=== PATIENT | female | born 1945 | race Hispanic/Latino ===

== ENCOUNTER → 2017-08-29 | Outpatient (CLI) | payer MEDICARE ==
[~2017-08-29] MED LIST: ACET-2247 PO; CYAN100010 PO; GLIM2TAB3 PO; LACT10SO8 PO; LEVO50TA4 PO; LISI40TA4 PO; LORA10TA7 PO; NADO20TA12 PO; OLME40TA18 PO; PANT40TA25 PO; [UNRECOGNIZED DRUG - OTHER] PO
== END | disposition home or self-care (01) ==
LOC: OIH 13:39
PROVIDERS: ATTEND Internal Medicine
DX: M54.16 Radiculopathy, lumbar region (principal); M54.12 Radiculopathy, cervical region; M25.552 Pain in left hip
CPT/HCPCS: 72040; 72100; 73502

== ENCOUNTER 2017-09-28 22:12 | Emergency (ER) | payer MEDICARE ==
[~2017-09-28 22:12] MED LIST changes: -ACET-2247 PO; -CYAN100010 PO; -LACT10SO8 PO; -LEVO50TA4 PO; -OLME40TA18 PO
[2017-09-29 00:03] LABS: APPEARANCE,URINE Clear (CLEAR); BILIRUBIN,URINE Negative (NEGATIVE); COLOR,URINE Yellow (YELLOW); GLUCOSE, URINE (UA) Negative (NEGATIVE); KETONES,URINE Negative (NEGATIVE); LEUKOCYTE ESTERASE ,URINE Moderate (NEGATIVE); NITRATE,URINE Negative (NEGATIVE); OCCULT BLOOD,URINE Negative (NEGATIVE); PH,URINE >=9.0 (5.0-8.0); PROTEIN,URINE Negative (NEGATIVE); UROBILINOGEN,URINE 0.2 mg/dL (0.2-1.0)
[2017-09-29 00:06] LABS: MEAN CORPUSCULAR HEMOGLOBIN 25.5 pg (27.0-33.0); MEAN CORPUSCULAR HGB CONC 33.7 g/dL (32.0-36.0); MEAN CORPUSCULAR VOLUME 75.6 fL (79-99); NUCLEATED RED BLOOD CELLS 0.2 % (0.0-0.19); PLATELET COUNT (AUTO) 99 K/uL (130-400); RED BLOOD CELL COUNT(AUTO) 3.96 MIL/uL (4.00-5.50); RED CELL DISTRIBUTION WIDTH 17.1 % (11.0-15.5); WHITE BLOOD COUNT (AUTO) 2.5 K/uL (4.8-10.8)
[2017-09-29 00:18] LABS: CREATININE 0.7 mg/dL (0.5-1.5); POTASSIUM 3.5 mmol/L (3.5-5.1)
[2017-09-29 00:22] LABS: BILIRUBIN,TOTAL 0.8 mg/dL (0.2-1.0); TOTAL PROTEIN, SERUM 6.7 g/dL (6.0-8.3)
[2017-09-29 00:26] LABS: BACTERIA,URINE Many /HPF (None Seen); RBC,URINE 0-1 /HPF (0-1); SQUAMOUS EPITHELIAL CELL,UR None Seen /LPF (0-2)
[2017-09-29 00:35] LABS: BAND NEUTROPHILS % (MANUAL) 1 % (0-2); EOSINOPHILS % (MANUAL) 3 % (1-6); LYMPHOCYTES % (MANUAL) 22 % (22-44); MAN.DIFF COMMENT-IMPRESSION MANUAL DIFFERENTIAL; MONOCYTES % (MANUAL) 3 % (2-9); PLATELET MORPHOLOGY COMMENT DECREASED; SEGMENTED NEUTROPHILS % 71 % (40-70)
[2017-09-29] MEDS ORDERED: MAG HYDROX/AL HYDROX/SIMETH ES 30 ML SUSP UDCUP ONE (04:15)
[2017-09-29] MEDS ORDERED: LIDOCAINE HCL 2% VISCOUS 15 ML UDCUP ONE (04:15)
[2017-10-16] MEDS ORDERED: LEVO50TA4 PO (11:37)
[2017-10-16] MEDS ORDERED: LACT10SO8 PO (11:37)
[2017-10-16] MEDS ORDERED: CYAN100010 PO (11:37)
[2017-10-16] MEDS ORDERED: OLME40TA18 PO (11:37)
[2017-10-16] MEDS ORDERED: ACET-2247 PO (11:37)
== END 2017-09-29 04:49 | disposition home or self-care (01) ==
LOC: EDH 22:12
DX: K29.00 Acute gastritis without bleeding (principal); E11.9 Type 2 diabetes mellitus without complications; I10 Essential (primary) hypertension; K74.60 Unspecified cirrhosis of liver; E78.5 Hyperlipidemia, unspecified; Z88.0 Allergy status to penicillin; Z88.6 Allergy status to analgesic agent; Z87.442 Personal history of urinary calculi
CPT/HCPCS: 36415; 71045; 80053; 81001; 82150; 82270; 83690; 84484; 85025; 93005

== ENCOUNTER 2017-10-17 07:36 | Day surgery (SDC) | payer MEDICARE ==
[~2017-10-17] VITALS: Ht 154.9 cm; Wt 71.4 kg
[~2017-10-17 07:36] MED LIST changes: +ACET-2247 PO; +CYAN100010 PO; +LACT10SO8 PO; +LEVO50TA4 PO; -LISI40TA4 PO; -LORA10TA7 PO; +OLME40TA18 PO; +SODIUM CHLORIDE 0.9% 1000ML 1,000 ML IV ONE; -[UNRECOGNIZED DRUG - OTHER] PO
[2017-10-17 08:54] VITALS: BP 117/53
[2017-10-17] MEDS ORDERED: PROPOFOL 1000 MG/100 ML 100 ML IV ONE (09:45)
[2017-10-17 10:10] VITALS: BP 90/45
== END 2017-10-17 10:52 | disposition home or self-care (01) ==
LOC: DAH 07:36
PROVIDERS: ATTEND Internal Medicine Gastroenterology
DX: D12.3 Benign neoplasm of transverse colon (principal); D12.4 Benign neoplasm of descending colon; Z86.010 Personal history of colon polyps; K55.20 Angiodysplasia of colon without hemorrhage; I85.00 Esophageal varices without bleeding; K76.6 Portal hypertension; K31.89 Other diseases of stomach and duodenum; K21.9 Gastro-esophageal reflux disease without esophagitis; I10 Essential (primary) hypertension; D61.818 Other pancytopenia; E11.9 Type 2 diabetes mellitus without complications; E03.9 Hypothyroidism, unspecified; G35 Multiple sclerosis; Z68.30 Body mass index [BMI] 30.0-30.9, adult; Z79.899 Other long term (current) drug therapy; K74.69 Other cirrhosis of liver
CPT/HCPCS: 36415; 43235; 45380; 82105; 82948 ×2; 88305; 93005; A4606; J2704; J7030

== ENCOUNTER 2017-11-25 10:16 | Day surgery (SDC) | payer MEDICARE ==
[2017-11-25] VITALS (7 sets, daily range): BP systolic 100–131; BP diastolic 61–74
[~2017-11-25] VITALS: Ht 154.9 cm; Wt 73.1 kg
[~2017-11-25 10:16] MED LIST changes: -SODIUM CHLORIDE 0.9% 1000ML 1,000 ML IV ONE
[2017-11-25 11:10] LABS: BASOPHILS % (AUTO) 1.4 % (0.0-5.0); HEMATOCRIT 31.9 % (36-48); LYMPHOCYTES % (AUTO) 22.5 % (21.0-51.0); MEAN CORPUSCULAR HEMOGLOBIN 26.3 pg (27.0-33.0); MEAN CORPUSCULAR HGB CONC 33.8 g/dL (32.0-36.0); MEAN CORPUSCULAR VOLUME 77.6 fL (79-99); MONOCYTES % (AUTO) 9.4 % (3.0-13.0); NEUTROPHILS % (AUTO) 60.7 % (40.0-77.0); NUCLEATED RED BLOOD CELLS 0.1 % (0.0-0.19); PLATELET COUNT (AUTO) 117 K/uL (130-400); RED BLOOD CELL COUNT(AUTO) 4.11 MIL/uL (4.00-5.50); RED CELL DISTRIBUTION WIDTH 16.6 % (11.0-15.5); WHITE BLOOD COUNT (AUTO) 3.5 K/uL (4.8-10.8)
[2017-11-25 11:21] LABS: ALBUMIN 3.2 g/dL (3.5-5.0); BILIRUBIN,TOTAL 1.2 mg/dL (0.2-1.0); CREATININE 0.6 mg/dL (0.5-1.5); POTASSIUM 4.2 mmol/L (3.5-5.1); TOTAL PROTEIN, SERUM 7.1 g/dL (6.0-8.3)
[2017-11-25 11:30] LABS: INR 1.18 (0.85-1.15); PARTIAL THROMBOPLASTIN TIME 29.4 SEC (26.3-35.5); PROTHROMBIN TIME 12.4 SEC (9.6-11.6)
[2017-11-25] MEDS ORDERED: FENTANYL CITRATE PF 50 MCG/1 ML 2ML VIAL ONE (11:47)
[2017-11-25] MEDS ORDERED: SODIUM CHLORIDE 0.9% 1000ML 1,000 ML IV ONE (12:12)
== END 2017-11-25 14:00 | disposition home or self-care (01) ==
LOC: DAH 10:16
PROVIDERS: ATTEND Internal Medicine Gastroenterology
DX: K74.69 Other cirrhosis of liver (principal); K75.81 Nonalcoholic steatohepatitis (NASH); K21.9 Gastro-esophageal reflux disease without esophagitis; I10 Essential (primary) hypertension; E11.9 Type 2 diabetes mellitus without complications; E03.9 Hypothyroidism, unspecified; G35 Multiple sclerosis; Z68.31 Body mass index [BMI] 31.0-31.9, adult; I85.10 Secondary esophageal varices without bleeding; Z86.010 Personal history of colon polyps
CPT/HCPCS: 36415; 47000; 76942; 80053; 82948; 85025; 85610; 85730; 88307; C2615; J3010; J7030

== ENCOUNTER 2017-12-13 06:33 | Emergency (ER) | payer MEDICARE ==
[2017-12-13] MEDS ORDERED: CYCLOBENZAPRINE HCL 10 MG TABLET ONE (07:47)
[2017-12-13] MEDS ORDERED: TRAMADOL HCL 50 MG TABLET ONE (07:47)
== END 2017-12-13 09:09 | disposition home or self-care (01) ==
LOC: EDH 06:33
DX: M54.12 Radiculopathy, cervical region (principal); E11.9 Type 2 diabetes mellitus without complications; E78.5 Hyperlipidemia, unspecified; I10 Essential (primary) hypertension; K74.69 Other cirrhosis of liver; Z87.442 Personal history of urinary calculi; Z88.6 Allergy status to analgesic agent; Z88.0 Allergy status to penicillin
CPT/HCPCS: 72125

== ENCOUNTER 2018-01-09 09:14 | Emergency (ER) | payer MEDICARE ==
[2018-01-09] MEDS ORDERED: ACETAMINOPHEN EXTRA STRENGTH 500 MG TABLET ONE (09:33)
[2018-01-09] MEDS ORDERED: DIAZEPAM 2 MG TAB ONE (09:34)
== END 2018-01-09 11:33 | disposition home or self-care (01) ==
LOC: EDH 09:14
DX: S39.012A Strain of muscle, fascia and tendon of lower back, initial encounter (principal); K74.60 Unspecified cirrhosis of liver; E11.9 Type 2 diabetes mellitus without complications; E78.5 Hyperlipidemia, unspecified; I10 Essential (primary) hypertension; Z87.442 Personal history of urinary calculi; Z88.0 Allergy status to penicillin; Z88.6 Allergy status to analgesic agent; W01.0XXA Fall on same level from slipping, tripping and stumbling without subsequent striking against object, initial encounter; Y93.89 Activity, other specified; Y92.090 Kitchen in other non-institutional residence as the place of occurrence of the external cause; Y99.8 Other external cause status
CPT/HCPCS: 71045; 72100

== ENCOUNTER → 2018-01-12 | Outpatient (CLI) | payer MEDICARE | END | disposition home or self-care (01) | LOC: OIH 16:13 | PROVIDERS: ATTEND Internal Medicine | DX: M85.89 Other specified disorders of bone density and structure, multiple sites (principal); M54.14 Radiculopathy, thoracic region; R07.81 Pleurodynia | CPT/HCPCS: 71100; 72070 ==

== ENCOUNTER 2018-09-18 08:13 | Day surgery (SDC) | payer MEDICARE ==
[2018-09-18] VITALS (8 sets, daily range): BP systolic 97–137; BP diastolic 52–66
[~2018-09-18] VITALS: Ht 152.4 cm; Wt 70.8 kg
[~2018-09-18 08:13] MED LIST changes: -ACET-2247 PO; -CYAN100010 PO; +DEXL60CA3 PO; -GLIM2TAB3 PO; +GLIM4TAB3 PO; -PANT40TA25 PO; +SODIUM CHLORIDE 0.9% 1000ML 1,000 ML IV ONE
[2018-09-18] MEDS ORDERED: PROPOFOL 1000 MG/100 ML 100 ML IV ONE (11:25)
[2018-09-18] MEDS ORDERED: EPHEDRINE SULFATE 50 MG/ML AMPULE ONE (11:29)
== END 2018-09-18 12:59 | disposition home or self-care (01) ==
LOC: DAH 08:13
PROVIDERS: ATTEND Internal Medicine
DX: D12.0 Benign neoplasm of cecum (principal); D12.4 Benign neoplasm of descending colon; K62.1 Rectal polyp; K57.30 Diverticulosis of large intestine without perforation or abscess without bleeding; Z86.010 Personal history of colon polyps; K64.8 Other hemorrhoids; I10 Essential (primary) hypertension; K21.9 Gastro-esophageal reflux disease without esophagitis; Z80.0 Family history of malignant neoplasm of digestive organs; Z90.710 Acquired absence of both cervix and uterus; Z79.899 Other long term (current) drug therapy; Z79.01 Long term (current) use of anticoagulants; Z98.890 Other specified postprocedural states; Z83.3 Family history of diabetes mellitus; Z82.49 Family history of ischemic heart disease and other diseases of the circulatory system; Z88.0 Allergy status to penicillin; Z88.8 Allergy status to other drugs, medicaments and biological substances; K31.7 Polyp of stomach and duodenum
CPT/HCPCS: 43239; 45380; 45385; 76700; 88305; 88312; 93005; A4606; J2704; J3490; J7030; 43237; 45384

== ENCOUNTER 2018-11-23 12:14 | Observation (INO) | payer MEDICARE ==
[~2018-11-23] VITALS: Ht 152.4 cm; Wt 71.0 kg
[~2018-11-23 12:14] MED LIST changes: -SODIUM CHLORIDE 0.9% 1000ML 1,000 ML IV ONE
[2018-11-23 12:51] LABS: EOSINOPHILS % (AUTO) 3.3 % (0.0-8.0); LYMPHOCYTES % (AUTO) 24.4 % (21.0-51.0); MEAN CORPUSCULAR HGB CONC 32.9 g/dL (32.0-36.0); MONOCYTES % (AUTO) 7.7 % (3.0-13.0); NEUTROPHILS % (AUTO) 63.6 % (40.0-77.0); NUCLEATED RED BLOOD CELLS 0.1 % (0.0-0.19); PLATELET COUNT (AUTO) 95 K/uL (130-400); RED CELL DISTRIBUTION WIDTH 16.9 % (11.0-15.5); WHITE BLOOD COUNT (AUTO) 2.7 K/uL (4.8-10.8)
[2018-11-23 13:03] LABS: CREATININE 0.7 mg/dL (0.5-1.5); POTASSIUM 4.2 mmol/L (3.5-5.1)
[2018-11-23 13:08] LABS: ALBUMIN 3.1 g/dL (3.5-5.0); BILIRUBIN,TOTAL 1.1 mg/dL (0.2-1.0); TOTAL PROTEIN, SERUM 6.3 g/dL (6.0-8.3)
[2018-11-23 13:23] LABS: BASOPHILS % (MANUAL) 1 % (0-2); EOSINOPHILS % (MANUAL) 2 % (1-6); LYMPHOCYTES % (MANUAL) 21 % (22-44); MAN.DIFF COMMENT-IMPRESSION MANUAL DIFFERENTIAL; MONOCYTES % (MANUAL) 9 % (2-9); PLATELET MORPHOLOGY COMMENT DECREASED; SEGMENTED NEUTROPHILS % 67 % (40-70)
[2018-11-23] MEDS ORDERED: LACTULOSE 20 GM/30 ML UDCUP ONE (14:12)
[2018-11-23 14:15] LABS: APPEARANCE,URINE Clear (CLEAR); BILIRUBIN,URINE Negative (NEGATIVE); COLOR,URINE Yellow (YELLOW); GLUCOSE, URINE (UA) Negative (NEGATIVE); KETONES,URINE Negative (NEGATIVE); LEUKOCYTE ESTERASE ,URINE Trace (NEGATIVE); NITRATE,URINE Negative (NEGATIVE); OCCULT BLOOD,URINE Negative (NEGATIVE); PH,URINE 7.5 (5.0-8.0); PROTEIN,URINE Negative (NEGATIVE); UROBILINOGEN,URINE 0.2 mg/dL (0.2-1.0)
[2018-11-23 14:36] LABS: BACTERIA,URINE Moderate /HPF (None Seen); RBC,URINE None Seen /HPF (0-1); WBC,URINE 0-1 /HPF (0-1)
[2018-11-23] MEDS ORDERED: SODIUM CHLORIDE 0.9% 10 ML VIAL IVP PRN (17:00)
[2018-11-23] MEDS ORDERED: LACTULOSE 20 GM/30 ML UDCUP PO SCH (21:00)
[2018-11-24] MEDS ORDERED: LACTULOSE 20 GM/30 ML UDCUP ONE (02:36)
[2018-11-24 05:17] LABS: BASOPHILS % (AUTO) 0.7 % (0.0-5.0); EOSINOPHILS % (AUTO) 6.2 % (0.0-8.0); HEMATOCRIT 27.4 % (36-48); LYMPHOCYTES % (AUTO) 30.9 % (21.0-51.0); MEAN CORPUSCULAR HEMOGLOBIN 23.8 pg (27.0-33.0); MEAN CORPUSCULAR HGB CONC 32.2 g/dL (32.0-36.0); MONOCYTES % (AUTO) 10.2 % (3.0-13.0); NUCLEATED RED BLOOD CELLS 0.2 % (0.0-0.19); PLATELET COUNT (AUTO) 106 K/uL (130-400); RED CELL DISTRIBUTION WIDTH 16.8 % (11.0-15.5); WHITE BLOOD COUNT (AUTO) 2.8 K/uL (4.8-10.8)
[2018-11-24 05:26] LABS: CREATININE 0.7 mg/dL (0.5-1.5); POTASSIUM 3.4 mmol/L (3.5-5.1)
[2018-11-24] MEDS ORDERED: OLME1TAB44 PO (10:16)
[2018-11-24] MEDS ORDERED: CYAN-35 PO (10:16)
[2018-11-24] MEDS ORDERED: PANT40TA25 PO (10:16)
[2018-11-24] MEDS ORDERED: ATOR20TA65 PO (10:16)
--- NOTE | 2018-11-24 10:39 | NUR ---
DC DC INSTRUCTIONS GIVEN TO PT / PTS FRIEND RONNIE, INSTRUCTED TO F/U WITH DR. ALARCON, NO NEW RX GIVEN. PT AWAKE AND ALERT, DENIES ANY PAIN OR DISCOMFORTS. PIV REMOVED TO LEFT HAND SITE ASYMTOMATIC, CATHETER INTACT, PT BEING SEND HOME WITH FAMILY FRIEND RONNIE. HE HELPS TAKE CARE OF HER AT HOME
== END 2018-11-24 11:06 | disposition home or self-care (01) ==
LOC: EDH 12:14 → EDHIP 16:16
PROVIDERS: ADMIT Internal Medicine; ATTEND Internal Medicine
DX: K72.90 Hepatic failure, unspecified without coma (principal); E78.5 Hyperlipidemia, unspecified; I10 Essential (primary) hypertension; K74.60 Unspecified cirrhosis of liver; Z86.010 Personal history of colon polyps
CPT/HCPCS: 36415 ×2; 80048; 80053; 81001; 82140 ×2; 85025 ×2; 86850; 86900; 86901; 99284; G0378 ×19

== ENCOUNTER 2019-01-25 10:35 | Emergency (ER) | payer MEDICARE ==
[~2019-01-25 10:35] MED LIST changes: +ATOR20TA65 PO; +CYAN-35 PO; -DEXL60CA3 PO; +OLME1TAB44 PO; -OLME40TA18 PO; +PANT40TA25 PO
[2019-01-25] MEDS ORDERED: NA BORATE/BORIC AC/H2O/NACL 120 ML OPHTH IRRIG SOLN ONE (10:55)
[2019-01-25] MEDS ORDERED: TETRACAINE HCL 0.5% 4 ML OPHTH SOLN ONE (10:55)
[2019-01-25] MEDS ORDERED: FLUORESCEIN SODIUM 1 STRIP STRIP ONE (10:55)
[2019-01-25 11:15] LABS: BASOPHILS % (AUTO) 0.9 % (0.0-5.0); EOSINOPHILS % (AUTO) 4.3 % (0.0-8.0); HEMATOCRIT 28.6 % (36-48); LYMPHOCYTES % (AUTO) 20.3 % (21.0-51.0); MEAN CORPUSCULAR HEMOGLOBIN 24.7 pg (27.0-33.0); MEAN CORPUSCULAR HGB CONC 33.5 g/dL (32.0-36.0); MEAN CORPUSCULAR VOLUME 73.7 fL (79-99); MONOCYTES % (AUTO) 7.2 % (3.0-13.0); NEUTROPHILS % (AUTO) 67.3 % (40.0-77.0); NUCLEATED RED BLOOD CELLS 0.1 % (0.0-0.19); PLATELET COUNT (AUTO) 62 K/uL (130-400); RED BLOOD CELL COUNT(AUTO) 3.88 MIL/uL (4.00-5.50); WHITE BLOOD COUNT (AUTO) 2.4 K/uL (4.8-10.8)
[2019-01-25 11:28] LABS: ALBUMIN 2.6 g/dL (3.5-5.0); BILIRUBIN,TOTAL 1.9 mg/dL (0.2-1.0); CREATININE 0.6 mg/dL (0.5-1.5); TOTAL PROTEIN, SERUM 4.9 g/dL (6.0-8.3)
[2019-01-25 11:29] LABS: APPEARANCE,URINE SL CLOUDY (CLEAR); BILIRUBIN,URINE SMALL (NEGATIVE); COLOR,URINE YELLOW (YELLOW); GLUCOSE, URINE (UA) NEGATIVE (NEGATIVE); KETONES,URINE NEGATIVE (NEGATIVE); LEUKOCYTE ESTERASE ,URINE MODERATE (NEGATIVE); NITRATE,URINE NEGATIVE (NEGATIVE); OCCULT BLOOD,URINE NEGATIVE (NEGATIVE); PROTEIN,URINE TRACE mg/dL (NEGATIVE)
[2019-01-25 11:42] LABS: INR 1.22 (0.85-1.15); PARTIAL THROMBOPLASTIN TIME 27.3 SEC (26.3-35.5); PROTHROMBIN TIME 12.8 SEC (9.6-11.6)
[2019-01-25 11:46] LABS: BACTERIA,URINE Moderate /HPF (None Seen); RBC,URINE None Seen /HPF (0-1); WBC,URINE 51-100 /HPF (0-1)
[2019-01-25 12:03] LABS: BAND NEUTROPHILS % (MANUAL) 1 % (0-2); BASOPHILS % (MANUAL) 1 % (0-2); EOSINOPHILS % (MANUAL) 2 % (1-6); LYMPHOCYTES % (MANUAL) 15 % (22-44); MAN.DIFF COMMENT-IMPRESSION MANUAL DIFFERENTIAL; MONOCYTES % (MANUAL) 6 % (2-9); SEGMENTED NEUTROPHILS % 75 % (40-70)
[2019-01-25 12:06] LABS: PLATELET MORPHOLOGY COMMENT DECREASED
[2019-01-25] MEDS ORDERED: ERYTHROMYCIN BASE 0.5% OPHTH OINT 1 GM TUBE ONE (14:55)
[2019-01-25] MEDS ORDERED: CEFTRIAXONE SODIUM 1 GM ONE (15:09)
[2019-01-25] MEDS ORDERED: SODIUM CHLORIDE 0.9% 50 ML IV ONE (15:09)
== END 2019-01-25 15:46 | disposition home or self-care (01) ==
LOC: EDH 10:35
DX: H10.32 Unspecified acute conjunctivitis, left eye (principal); N39.0 Urinary tract infection, site not specified; K74.69 Other cirrhosis of liver; R13.10 Dysphagia, unspecified; I10 Essential (primary) hypertension; E78.5 Hyperlipidemia, unspecified; E11.9 Type 2 diabetes mellitus without complications; Z88.0 Allergy status to penicillin; Z88.6 Allergy status to analgesic agent; Z87.442 Personal history of urinary calculi
CPT/HCPCS: 36415; 70360; 71045; 80053; 81001; 82150; 82550; 83690; 84484; 85025; 85610; 85730; 87077; 87088; 87186; 93005; 96374; 99285; J0696

== ENCOUNTER 2019-02-12 00:14 | Emergency (ER) | payer MEDICARE ==
[2019-02-12 00:35] LABS: BASOPHILS % (AUTO) 0.1 % (0.0-5.0); HEMATOCRIT 33.9 % (36-48); LYMPHOCYTES % (AUTO) 11.7 % (21.0-51.0); MEAN CORPUSCULAR HEMOGLOBIN 23.9 pg (27.0-33.0); MEAN CORPUSCULAR VOLUME 74.7 fL (79-99); MONOCYTES % (AUTO) 6.6 % (3.0-13.0); NEUTROPHILS % (AUTO) 81.6 % (40.0-77.0); PLATELET COUNT (AUTO) 103 K/uL (130-400); RED BLOOD CELL COUNT(AUTO) 4.53 MIL/uL (4.00-5.50); RED CELL DISTRIBUTION WIDTH 24.3 % (11.0-15.5); WHITE BLOOD COUNT (AUTO) 4.8 K/uL (4.8-10.8)
[2019-02-12 00:48] LABS: CREATININE 0.7 mg/dL (0.5-1.5); POTASSIUM 4.3 mmol/L (3.5-5.1)
[2019-02-12 00:58] LABS: INR 1.3 (0.85-1.15); PARTIAL THROMBOPLASTIN TIME 26.1 SEC (26.3-35.5); PROTHROMBIN TIME 13.6 SEC (9.6-11.6)
[2019-02-12 01:05] LABS: B-TYPE NATRIURETIC PEPTIDE 203 pg/mL (0-100)
[2019-02-12 01:10] LABS: ALBUMIN 3.1 g/dL (3.5-5.0); BILIRUBIN,TOTAL 1.9 mg/dL (0.2-1.0); TOTAL PROTEIN, SERUM 5.9 g/dL (6.0-8.3)
[2019-02-12] MEDS ORDERED: FUROSEMIDE 10 MG/ML 4ML VIAL ONE (01:57)
[2019-02-12] MEDS ORDERED: INSULIN HUMULIN R 100 UNIT/ML 3ML ONE (01:58)
== END 2019-02-12 03:21 | disposition home or self-care (01) ==
LOC: EDH 00:14
DX: R06.00 Dyspnea, unspecified (principal); R60.0 Localized edema; E11.9 Type 2 diabetes mellitus without complications; R79.89 Other specified abnormal findings of blood chemistry; I10 Essential (primary) hypertension; E78.5 Hyperlipidemia, unspecified; Z88.0 Allergy status to penicillin; Z88.6 Allergy status to analgesic agent; Z88.2 Allergy status to sulfonamides; Z87.442 Personal history of urinary calculi
CPT/HCPCS: 36415; 71045; 80053; 82550; 83874; 83880; 84484; 85025; 85610; 85730; 93005; 96374; 96375; 99285; J1815; J1940

== ENCOUNTER 2019-02-19 23:46 | Emergency (ER) | payer MEDICARE ==
[2019-02-20 00:21] LABS: BASOPHILS % (AUTO) 0.9 % (0.0-5.0); EOSINOPHILS % (AUTO) 2.6 % (0.0-8.0); HEMATOCRIT 34.8 % (36-48); LYMPHOCYTES % (AUTO) 24.3 % (21.0-51.0); MEAN CORPUSCULAR HEMOGLOBIN 23.9 pg (27.0-33.0); MEAN CORPUSCULAR HGB CONC 32.1 g/dL (32.0-36.0); MEAN CORPUSCULAR VOLUME 74.5 fL (79-99); MONOCYTES % (AUTO) 13.4 % (3.0-13.0); NEUTROPHILS % (AUTO) 58.8 % (40.0-77.0); PLATELET COUNT (AUTO) 79 K/uL (130-400); RED BLOOD CELL COUNT(AUTO) 4.67 MIL/uL (4.00-5.50); RED CELL DISTRIBUTION WIDTH 23.3 % (11.0-15.5); WHITE BLOOD COUNT (AUTO) 5.4 K/uL (4.8-10.8)
[2019-02-20 00:46] LABS: CREATININE 0.8 mg/dL (0.5-1.5); POTASSIUM 3.3 mmol/L (3.5-5.1)
[2019-02-20 00:48] LABS: INR 1.19 (0.85-1.15); PARTIAL THROMBOPLASTIN TIME 29.4 SEC (26.3-35.5); PROTHROMBIN TIME 12.5 SEC (9.6-11.6)
[2019-02-20 00:50] LABS: ALBUMIN 3.1 g/dL (3.5-5.0); BILIRUBIN,TOTAL 1.6 mg/dL (0.2-1.0); TOTAL PROTEIN, SERUM 5.8 g/dL (6.0-8.3)
[2019-02-20] MEDS ORDERED: ALBUTEROL SULFATE 0.083% 2.5 MG/3 ML INH IH ONE (00:53)
[2019-02-20 00:59] LABS: B-TYPE NATRIURETIC PEPTIDE 102 pg/mL (0-100)
[2019-02-20] MEDS ORDERED: LACTULOSE 20 GM/30 ML UDCUP ONE (01:28)
== END 2019-02-20 02:01 | disposition home or self-care (01) ==
LOC: EDH 23:46
DX: R06.00 Dyspnea, unspecified (principal); K59.00 Constipation, unspecified; E11.9 Type 2 diabetes mellitus without complications; E78.5 Hyperlipidemia, unspecified; I10 Essential (primary) hypertension; Z88.6 Allergy status to analgesic agent; Z88.0 Allergy status to penicillin; Z87.442 Personal history of urinary calculi
CPT/HCPCS: 36415; 71045; 80053; 82550; 83880; 84484; 85025; 85610; 85730; 93005; 94640

== ENCOUNTER 2019-02-21 05:07 | Emergency (ER) | payer MEDICARE ==
[2019-02-21] MEDS ORDERED: IPRATROPIUM/ALBUTEROL SULFATE 3 ML SOLUTION IH ONE (05:25)
[2019-02-21 05:36] LABS: BASOPHILS % (AUTO) 1.1 % (0.0-5.0); EOSINOPHILS % (AUTO) 3.5 % (0.0-8.0); HEMATOCRIT 31.8 % (36-48); LYMPHOCYTES % (AUTO) 21.8 % (21.0-51.0); MEAN CORPUSCULAR HEMOGLOBIN 24.2 pg (27.0-33.0); MEAN CORPUSCULAR HGB CONC 32.8 g/dL (32.0-36.0); MEAN CORPUSCULAR VOLUME 73.6 fL (79-99); MONOCYTES % (AUTO) 12.7 % (3.0-13.0); NEUTROPHILS % (AUTO) 60.9 % (40.0-77.0); NUCLEATED RED BLOOD CELLS 0.1 % (0.0-0.19); PLATELET COUNT (AUTO) 78 K/uL (130-400); RED BLOOD CELL COUNT(AUTO) 4.33 MIL/uL (4.00-5.50); RED CELL DISTRIBUTION WIDTH 23.5 % (11.0-15.5); WHITE BLOOD COUNT (AUTO) 4.4 K/uL (4.8-10.8)
[2019-02-21 05:48] LABS: ALBUMIN 2.9 g/dL (3.5-5.0); BILIRUBIN,TOTAL 1.5 mg/dL (0.2-1.0); CREATININE 0.7 mg/dL (0.5-1.5); TOTAL PROTEIN, SERUM 5.6 g/dL (6.0-8.3)
[2019-02-21 05:50] LABS: B-TYPE NATRIURETIC PEPTIDE 71 pg/mL (0-100)
[2019-02-21] MEDS ORDERED: POTASSIUM BICARB/CIT AC 25 MEQ TABLET.EFF ONE (06:20)
[2019-02-21] MEDS ORDERED: IOHEXOL 350 MG/ML 100ML INFUS..BTL IV ONE (08:12)
== END 2019-02-21 09:55 | disposition home or self-care (01) ==
LOC: EDH 05:07
DX: K74.60 Unspecified cirrhosis of liver (principal); R06.00 Dyspnea, unspecified; I10 Essential (primary) hypertension; E11.9 Type 2 diabetes mellitus without complications; E78.5 Hyperlipidemia, unspecified; Z87.442 Personal history of urinary calculi; Z88.0 Allergy status to penicillin; Z88.6 Allergy status to analgesic agent
CPT/HCPCS: 36415; 71045; 71275; 80053; 82550; 83735; 83880; 84484; 85025; 85378; 93005; 93970; 94640; 99285; Q9967

== ENCOUNTER 2020-03-27 10:17 | Emergency (ER) | payer MEDICARE ==
[~2020-03-27 10:17] MED LIST changes: -CYAN-35 PO; +FURO40TA7 PO; -GLIM4TAB3 PO; +GLIM4TAB36 PO; +LACT10SO62 PO; -LACT10SO8 PO; +LEVO500T2 PO; -NADO20TA12 PO; -OLME1TAB44 PO; +OLME1TAB86 PO
[2020-03-27 11:01] LABS: BASOPHILS % (AUTO) 0.6 % (0.0-5.0); EOSINOPHILS % (AUTO) 3.7 % (0.0-8.0); HEMATOCRIT 27.2 % (36-48); LYMPHOCYTES % (AUTO) 20.8 % (21.0-51.0); MEAN CORPUSCULAR VOLUME 78.2 fL (79-99); MONOCYTES % (AUTO) 11.5 % (3.0-13.0); NEUTROPHILS % (AUTO) 63.1 % (40.0-77.0); PLATELET COUNT (AUTO) 65 K/uL (130-400); RED BLOOD CELL COUNT(AUTO) 3.48 MIL/uL (4.00-5.50); RED CELL DISTRIBUTION WIDTH 18.2 % (11.0-15.5); WHITE BLOOD COUNT (AUTO) 3.2 K/uL (4.8-10.8)
[2020-03-27 11:20] LABS: ALBUMIN 2.7 g/dL (3.5-5.0); BILIRUBIN,TOTAL 1.4 mg/dL (0.2-1.0); CREATININE 0.6 mg/dL (0.5-1.5); POTASSIUM 3.7 mmol/L (3.5-5.1); TOTAL PROTEIN, SERUM 5.9 g/dL (6.0-8.3)
[2020-03-27 11:42] LABS: PLATELET MORPHOLOGY COMMENT DECREASED
[2020-03-27 13:29] LABS: APPEARANCE,URINE Clear (CLEAR); BILIRUBIN,URINE Negative (NEGATIVE); COLOR,URINE Yellow (YELLOW); GLUCOSE, URINE (UA) Negative (NEGATIVE); KETONES,URINE Negative (NEGATIVE); LEUKOCYTE ESTERASE ,URINE Trace (NEGATIVE); NITRATE,URINE Negative (NEGATIVE); OCCULT BLOOD,URINE Negative (NEGATIVE); PROTEIN,URINE Negative (NEGATIVE)
[2020-03-27 14:00] LABS: BACTERIA,URINE Rare /HPF (None Seen); RBC,URINE 0-1 /HPF (0-1); SQUAMOUS EPITHELIAL CELL,UR Rare /HPF (0-2); WBC,URINE 0-1 /HPF (0-1)
== END 2020-03-27 16:14 | disposition home or self-care (01) ==
LOC: EDH 10:17
DX: K52.9 Noninfective gastroenteritis and colitis, unspecified (principal); E11.9 Type 2 diabetes mellitus without complications; I10 Essential (primary) hypertension; Z88.0 Allergy status to penicillin; Z88.6 Allergy status to analgesic agent
CPT/HCPCS: 36415; 74176; 80053; 81001; 82140; 82550; 82948; 83690; 84484; 85025; 87040; 93005